=== PATIENT | female | born 1945 | race Caucasian/White ===

== ENCOUNTER 2021-09-22 15:19 | Emergency (ER) | payer OTHER, BC ==
[~2021-09-22] VITALS: Ht 162.6 cm; Wt 51.7 kg
[2021-09-22 15:40] LABS: ABSOLUTE NEUTROPHILS 3.5 thou/uL (1.4-8.2); BASOPHILS 0.5 % (0.0-2.0); EOSINOPHILS 2.4 % (0.0-3.0); HEMATOCRIT 35.9 % (37.0-47.0); HEMOGLOBIN 11.8 gm/dL (12.0-15.0); LYMPHOCYTES 16.1 % (24.0-44.0); MCV 90.9 fL (80.0-100.0); MONOCYTES 8.9 % (1.0-8.0); PLATELET COUNT 183 thou/uL (150-400); POLYS 72.1 % (36.0-66.0); RBC 3.95 mil/uL (4.20-5.00); RDW 13.3 % (10.5-14.5); WBC 4.9 thou/uL (4.0-11.0)
[2021-09-22 15:47] LABS: URINE BILIRUBIN NEGATIVE (Negative); URINE BLOOD NEGATIVE (Negative); URINE CLARITY CLEAR; URINE COLOR YELLOW; URINE GLUCOSE-RANDOM* NEGATIVE (Negative); URINE KETONES NEGATIVE (Negative); URINE LEUKOCYTES-REFLEX NEGATIVE (Negative); URINE NITRITE-REFLEX NEGATIVE (Negative); URINE PROTEIN (DIPSTICK) NEGATIVE (Negative); URINE UROBILINOGEN 0.2 E.U./dl (0.2-1.0)
[2021-09-22 16:16] LABS: ALBUMIN 3.5 g/dL (3.4-5.0); CREATININE 0.8 mg/dL (0.6-1.0); POTASSIUM 4.1 mmol/L (3.5-5.1); TOTAL BILIRUBIN 0.3 mg/dL (0.2-1.0); TOTAL PROTEIN 6.3 g/dL (6.4-8.2)
[2021-09-22] MEDS ORDERED: NORCO5 PO ×2 (17:51→17:57)
[2021-09-22] MEDS ORDERED: XANAX 0.5 MG0.5 M1 PO ×2 (17:51→17:57)
[2021-09-22 17:57] VITALS: BP 149/79
--- NOTE | 2021-09-23 07:37 | EKG ---
[address] [address] ELECTROCARDIOGRAM REPORT Name: OLINDA FELIX [facility]: [facility]AMPUSJose Armando#: [id number] Admission: 09/22/21 Attend Phys: Discharge: 09/22/21 Date of : 49 Report #: [id number] [facility] ED Test Date: 2021-09-22 Test Time: 15:21:33 Pat Name: OLINDA FELIX Department: Room: Gender: F Teaching Aide: : 1945 Requested By: Mónica Purcell Order Number: [id number] MD: Luis Logan Measurements Intervals [place] Rate: 81 P: 50 NC: 168 QRS: 42 QRSD: 84 T: 46 QT: 389 QTc: 452 Interpretive Statements Sinus rhythm No previous ECG available for comparison Electronically Signed On 09-23-2021 7:37:00 CDT by Luis Logan [email or web address] <ELECTRONICALLY SIGNED> By: Luis Logan MD, [facility] 09/23/21 0737 1521 1521 Luis Logan MD, FACC /EPI
== END 2021-09-22 17:57 | disposition home or self-care (01) ==
LOC: ER 15:19
PROVIDERS: Physician Assistant
DX: K85.90 Acute pancreatitis without necrosis or infection, unspecified (principal); D64.9 Anemia, unspecified; Z91.038 Other insect allergy status